=== PATIENT | female | born 1930 | race Hispanic/Latino ===

== ENCOUNTER → 2018-06-08 | Emergency (ER) | payer SELFPAY ==
[~2018-06-08] MED LIST: NACL 0.9% 500 ML 0 ML ONE
== END ==
LOC: ED 03:02
DX: J44.9 Chronic obstructive pulmonary disease, unspecified (principal); Z53.21 Procedure and treatment not carried out due to patient leaving prior to being seen by health care provider
CPT/HCPCS: 82803; J7040